=== PATIENT | female | born 1990 | race Caucasian/White ===

== ENCOUNTER 2016-12-28 14:13 | Emergency (ER) | payer OTHER ==
[2016-12-28 14:38] VITALS: BP 96/69; PULSE 83; RESP 16; TEMP 98.1; O2SAT 98
[2016-12-28] MEDS ORDERED: IPRATROPIUM/ALBUTEROL 3 ML DEYVIAL IH ONE (15:39)
[2016-12-28] MEDS ORDERED: predniSONE 20 MG TAB PO ONE (15:39)
--- NOTE | 2016-12-28 15:41 | UCPHY ---
[id number]/29/17 15:10 HPI/ROS: CHIEF COMPLAINT: Cough, URI symptoms HISTORY OF PRESENT ILLNESS: 26-year-old immunocompetent female complaining of 4 days of productive cough, congestion, wheezing, sore throat, subjective fever. Denies: Abdominal pain, nausea, vomiting, back or flank pain, rash, urinary complaints REVIEW OF SYSTEMS: A ten point review of systems was performed and is negative with the exception of the items mentioned in the HPI PAST MEDICAL & SURGICAL HISTORY: No pertinent medical or surgical history SOCIAL HISTORY: daily smoker. PHYSICAL EXAM (Prior to examination, patient consented to physical exam, hands were washed and my usual and customary physical exam procedures followed) 1) GENERAL: Well-developed, well-nourished, alert and oriented. Appears nontoxic 2) HEAD: Normocephalic, atraumatic 3) HEENT: Pupils equal, round, reactive to light bilaterally. Sclera anicteric. Nasopharynx, oropharynx, clear, no lesions. No tonsillar enlargement , no tonsillar exudate. Ears bilaterally with normal tympanic membranes. 4) NECK: Full range of motion, no meningeal signs. 5) LUNGS: bilateral end-expiratory wheeze. no rhonchi, no retractions. 6) HEART: Regular rate and rhythm, no murmur, no heave, no gallop. 7) ABDOMEN: No guarding, no rebound, no focal tenderness, negative McBurney's, negative Zayas's, negative Rovsing's, negative peritoneal sign, 8) MUSCULOSKELETAL: Moving all extremities, no focal areas of tenderness, no obvious trauma. No peripheral edema or discoloration. 9) BACK: No CVA tenderness, no midline vertebral tenderness, no fluctuance, no step-off, no obvious trauma, no visual or palpable abnormality. 10) SKIN: No rash, no petechiae. 11) Psychiatric: Patient is oriented X 3, there is no agitation. DIFFERENTIAL DIAGNOSIS: In no particular include but limited to bronchitis, pneumonia, influenza (Abundio,Lanny Shanda) Constitutional: Initial Vital Signs Temperature (C) 36.7 C 12/28/16 14:25 Heart Rate 83 12/28/16 14:25 Respiratory Rate 16 12/28/16 14:25 Blood Pressure 96/69 L 12/28/16 14:25 O2 Sat (%) 98 12/28/16 14:25 O2 Delivery Mode Room Air Allergies/Adverse Reactions: ketorolac tromethamine [From Toradol] Allergy (Verified 12/28/16 14:37) Home Medications: Medication Instructions Recorded AZITHROMYCIN [Z-PACK] 500 mg PO DAILY #1 packet 12/28/16 Albuterol [Proventil Inhaler HFA 1 - 2 puffs IH Q4PRN PRN #1 mdi 12/28/16 (*)] predniSONE [Prednisone] 60 mg PO DAILY #9 tablet 12/28/16 MDM/Departure - MDM Medications Given: Discontinued Medications Albuterol/Ipratropium (Duoneb) 3 ml IH EDNOW ONE Stop: 12/28/16 15:40 Last Admin: 12/28/16 15:45 Dose: 3 ml Prednisone (Prednisone) 60 mg PO EDNOW ONE Stop: 12/28/16 15:40 Last Admin: 12/28/16 15:45 Dose: 60 mg ED Course/Re-evaluation: 4:13 p.m.: Re-evaluation after DuoNeb treatment. Lungs are clear bilaterally. She is feeling improvement. Plan will be discharge with antibiotic, albuterol , prednisone. Recommend smoking cessation. Doubt PE. I do not think chest imaging currently indicated as she is maintain normal saturations and has now clear lungs bilaterally. Usual and customary strict return precautions provided. She feels comfortable being discharged. (Lanny Del Castillo) Urgent Care PA supervision Physician documentation: The patient was evaluated and managed by the physician activities assistant. My co- signature indicates that I have reviewed this chart and I agree with the findings and plan of care as documented. I am the secondary supervising physician. (Marcelo Becerra) - Depart Disposition: Home, Routine, Self-Care Clinical Impression: Bronchitis Condition: Good Instructions: Acute Bronchitis (ED) Additional Instructions: Return to the emergency department immediately for change in breathing habits, change in voice, change in swallowing habits, change in mental status, or any other symptoms that concern you. Prescriptions: Albuterol [Proventil Inhaler HFA (*)] 1 - 2 puffs IH Q4PRN PRN #1 mdi PRN Reason: Cough, Moderate AZITHROMYCIN [Z-PACK] 500 mg PO DAILY #1 packet predniSONE [Prednisone] 60 mg PO DAILY #9 tablet [facility]Outside[facility] - 1-2 days without fail - PQRS PQRS Measurement: Not applicable (Lanny Del Castillo)
== END 2016-12-28 16:23 | disposition home or self-care (01) ==
LOC: CED 14:13
DX: J20.9 Acute bronchitis, unspecified (principal); Z72.0 Tobacco use
CPT/HCPCS: 87400-PO; 99214-PO; G0463-PO

== ENCOUNTER 2017-02-06 11:13 | Emergency (ER) | payer OTHER ==
[2017-02-06 11:41] VITALS: BP 106/69; PULSE 66; RESP 18; TEMP 98; O2SAT 97
--- NOTE | 2017-02-06 12:08 | UCPHY ---
H & P Patient Type: Established Chief Complaint Nursing Narrative: c/o skin MRSA not getting better with antibotic treatment x 1 wk - c/o inc. pain swelling to thumb Time Seen by Provider: 02/06/17 11:57 HPI/ROS: CHIEF COMPLAINT: Right thumb pain HISTORY OF PRESENT ILLNESS: The patient is a 26-year-old female who comes to the emergency department complaining of an infection to her right thumb. It developed about a week ago. She saw her doctor started her on Bactrim. It has not improved. She does not have any vesicles over the area. She also has a stye in her left lower eyelid. She has not been using warm compresses. This developed around the same time. She was hoping the antibiotics work for it as well. No vision changes. No fevers. REVIEW OF SYSTEMS: Constitutional: denies: chills, fever, recent illness, recent injury EENTM: See HPI Respiratory: denies: cough, shortness of breath Cardiac: denies: chest pain, irregular heart rate, lightheadedness, palpitations Gastrointestinal/Abdominal: denies: abdominal pain, diarrhea, nausea, vomiting, blood streaked stools Genitourinary: denies: dysuria, frequency, hematuria, pain Musculoskeletal: denies: joint pain, muscle pain Skin: See HPI Neurological: denies: headache, numbness, paresthesia, tingling, dizziness, weakness Hematologic/Lymphatic: denies: blood clots, easy bleeding, easy bruising Immunologic/allergic: denies: HIV/AIDS, transplant EXAM: GENERAL: Well-appearing, well-nourished and in no acute distress. HEAD: Atraumatic, normocephalic. EYES: Small stye in left lower eyelid. No erythema. No abrasions or foreign bodies.Pupils equal round and reactive to light, extraocular movements intact, sclera anicteric, conjunctiva are normal. ENT: TMs normal, nares patent, oropharynx clear without exudates. Moist mucous membranes. NECK: Normal range of motion, supple without lymphadenopathy or JVD. LUNGS: Breath sounds clear to auscultation bilaterally and equal. No wheezes rales or rhonchi. HEART: Regular rate and rhythm without murmurs, rubs or gallops. ABDOMEN: Soft, nontender, normoactive bowel sounds. No guarding, no rebound. No masses appreciated. BACK: No CVA tenderness, no spinal tenderness, step-offs or deformities EXTREMITIES: Small paronychia at the lateral aspect of right thumb. Normal range of motion, no pitting or edema. No clubbing or cyanosis. NEUROLOGICAL: Cranial nerves II through XII grossly intact. Normal speech, normal gait. 5/5 strength, normal movement in all extremities, normal sensation PSYCH: Normal mood, normal affect. SKIN: Warm, dry, normal turgor, no visible rashes or lesions. Source: Patient - Personal History LMP (Females 10-55): Over 28 Days Ago Current Tetanus Diphtheria and Acellular Pertussis (TDAP): Unsure - Medical/Surgical History Hx Asthma: No Hx Chronic Respiratory Disease: No Hx Diabetes: No Hx Cardiac Disease: No Hx Renal Disease: No Hx Cirrhosis: No Hx Alcoholism: No Other PMH: PCP NONE. Chronic Headaches. Chronic Back and Neck Pain. Surgery NON. Tetanus utd. Flu Vacc NONE - Family History Significant Family History: No pertinent family hx - Social History Smoking Status: Heavy smoker Alcohol Use: Sober Drug Use: None Constitutional: Initial Vital Signs Temperature (C) 36.6 C 02/06/17 11:39 Heart Rate 66 02/06/17 11:39 Respiratory Rate 18 02/06/17 11:39 Blood Pressure 106/69 02/06/17 11:39 O2 Sat (%) 97 02/06/17 11:39 O2 Delivery Mode Room Air Allergies/Adverse Reactions: ketorolac tromethamine [From Toradol] Allergy (Verified 12/28/16 14:37) Home Medications: Medication Instructions Recorded Bacitracin 02/06/17 Ibuprofen 800 mg PO TID PRN #30 tablet 02/06/17 Remeron 02/06/17 Robaxin-750 02/06/17 SUBOXONE 8mg/2mg 02/06/17 Trileptal 02/06/17 Medical Decision Making Procedures: Paronychia drainage: The patient's paronychia was drained by me. She was given a digital block for anesthesia with 7 cc 0.5% bupivacaine. Patient tolerated the procedure well. About 1 cc of purulent drainage was expressed. Finger was cleaned and dressed . ED Course/Re-evaluation: Partial list of the Differential diagnosis considered include but were not limited to; paronychia, ingrown fingernail, felon and although unlikely based on the history and physical exam, I also considered sepsis, herpetic leonardo. I discussed these differential diagnoses and the plan with the patient as well as the usual and expected course. The patient understands that the diagnosis is provisional and that in medicine we are not always correct and that further workup is often warranted. Usual and customary warnings were given. All of the patient's questions were answered. The patient was instructed to return to the emergency department should the symptoms at all worsen or return, otherwise to followup with the physician as we discussed. Departure - Departure Disposition: Home, Routine, Self-Care Clinical Impression: Paronychia of finger Qualifiers: Laterality: right Qualified Code(s): L03.011 - Cellulitis of right finger Condition: Fair Instructions: Paronychia (ED) Referrals: Yanni Ernandez MD [Medical Doctor] - As per Instructions Prescriptions: Ibuprofen 800 mg PO TID PRN #30 tablet PRN Reason: Pain, Moderate - PQRS PQRS Measurement: Not applicable
== END 2017-02-06 14:05 | disposition home or self-care (01) ==
LOC: CED 11:13
PROC: 0H9FXZZ Drainage of Right Hand Skin, External Approach (ICD-10-PCS; principal; 2017-02-06)
DX: L03.011 Cellulitis of right finger (principal); F17.200 Nicotine dependence, unspecified, uncomplicated
CPT/HCPCS: G0463-PO